=== PATIENT | female | born 1965 | race Caucasian/White ===

== ENCOUNTER 2017-02-03 02:31 | Emergency (ER) | payer OTHER ==
[~2017-02-03] VITALS: Ht 160 cm; Wt 52.8 kg
[~2017-02-03 02:31] MED LIST: AMOX1TAB64 PO; CEFD300C37 PO; GLIM1TAB2 PO; LISI-170 PO; PROM25TA10 PO; SIMV40TA3 PO; [UNRECOGNIZED DRUG - REMARK]
[2017-02-03 03:20] LABS: HEMATOCRIT 43.5 % (34.6-47.8); HEMOGLOBIN 14.8 g/dL (11.7-16.4); WHITE BLOOD COUNT 11.3 x10^3/uL (3.4-10)
[2017-02-03 03:23] LABS: PATH.CAST-FLAG NOT PRESENT; SPERM-FLAG NOT PRESENT; SRC-FLAG NOT PRESENT; XTAL-FLAG NOT PRESENT; YLC-FLAG NOT PRESENT
[2017-02-03] MEDS ORDERED: SODIUM CHLORIDE 0.9% 1,000ML IVBOLUS ONE (03:30)
[2017-02-03] MEDS ORDERED: ONDANSETRON 2MG/ML, 2ML IVPush ONE (03:30)
[2017-02-03] MEDS ORDERED: MORPHINE SULFATE 4 MG/ML, 1ML ONE (03:30)
[2017-02-03] MEDS ORDERED: MORPHINE SULFATE 4 MG/ML, 1ML IVPush PRN (03:30)
[2017-02-03] MEDS ORDERED: ONDANSETRON 2MG/ML, 2ML ONE (03:30)
[2017-02-03 03:32] LABS: ASPARTATE AMINO TRANSFERASE 18 U/L (15-37); BLOOD UREA NITROGEN 18 mg/dL (7-18)
[2017-02-03 03:38] LABS: IS PT STATUS REG ER OR PRE ER? YES
[2017-02-03] MEDS ORDERED: CEFTRIAXONE PMX 1GM/50ML 50 ML ONE (05:11)
[2017-02-03] MEDS ORDERED: CEFTRIAXONE PMX 1GM/50ML 50 ML IV ONE (05:30)
[2017-02-03 06:22] VITALS: BP 158/78
[2017-02-04] MEDS ORDERED: CIPR500T3 PO (11:54)
== END 2017-02-03 06:25 | disposition home or self-care (01) ==
LOC: ED 06:15
DX: N30.01 Acute cystitis with hematuria (principal); E11.9 Type 2 diabetes mellitus without complications; E78.5 Hyperlipidemia, unspecified; I10 Essential (primary) hypertension; N10 Acute pyelonephritis
CPT/HCPCS: 36415; 71010; 76700; 80053; 81001; 83690; 84484; 85025; 87040; 87077; 87086; 87186; 93005; 96361; 96365; 96375; 99285; J0696; J2405; J7030

== ENCOUNTER 2017-02-03 20:37 | Inpatient (IN) | payer OTHER ==
[~2017-02-03] VITALS: Ht 162.6 cm; Wt 55.4 kg
[2017-02-03] MEDS ORDERED: SODIUM CHLORIDE 0.9% 1,000ML IVBOLUS ONE (21:30)
[2017-02-03] MEDS ORDERED: CEFTRIAXONE PMX 1GM/50ML 50 ML IVPB ONE (21:30)
[2017-02-03 21:57] LABS: HEMATOCRIT 40.9 % (34.6-47.8); HEMOGLOBIN 13.9 g/dL (11.7-16.4); WHITE BLOOD COUNT 7.8 x10^3/uL (3.4-10)
[2017-02-03] MEDS ORDERED: CEFTRIAXONE PMX 1GM/50ML 50 ML ONE (22:05)
[2017-02-03 22:06] LABS: BLOOD UREA NITROGEN 12 mg/dL (7-18)
[2017-02-03] MEDS: SODIUM CHLORIDE 0.9% 1,000 ML IV ONE (22:31)
[2017-02-03] MEDS ORDERED: ONDANSETRON 2MG/ML, 2ML IVPush PRN (23:00)
[2017-02-04] MEDS ORDERED: PROMETHAZINE 25MG TABLET PO PRN (00:30)
[2017-02-04] MEDS ORDERED: TEMAZEPAM 15 MG CAPSULE PO PRN (00:30)
[2017-02-04] MEDS ORDERED: ACETAMINOPHEN 325 MG TABLET PO PRN (00:30)
[2017-02-04] MEDS ORDERED: DOCUSATE 100 MG CAPSULE PO PRN (00:30)
[2017-02-04] MEDS ORDERED: ENOXAPARIN 40 MG/0.4 ML SQ SCH (00:30)
[2017-02-04] MEDS ORDERED: ENALAPRILAT 1.25 MG/ML, 2ML IVPush PRN (00:30)
[2017-02-04] MEDS ORDERED: hydrALAzine 20 MG/ML, 1ML IVPush PRN (00:30)
[2017-02-04] MEDS ORDERED: SIMVASTATIN 40 MG TABLET PO SCH (00:30)
[2017-02-04] MEDS: INSULIN ASPART 100 UNITS/ML, PEN SQ-INSULIN SCH ×3 (01:56→11:52)
[2017-02-04 03:19] VITALS: BP 125/75
[2017-02-04 07:52] VITALS: BP 159/84
[2017-02-04] MEDS ORDERED: LISINOPRIL 20 MG TABLET PO SCH (09:00)
[2017-02-04] MEDS ORDERED: GLIMEPIRIDE 1 MG TABLET PO SCH (09:00)
[2017-02-04] MEDS ORDERED: CEFTRIAXONE PMX 1GM/50ML 50 ML IV SCH (09:00)
[2017-02-04] MEDS ORDERED: CIPR500T3 PO (11:54)
[2017-02-04 12:28] VITALS: BP 153/85
== END 2017-02-04 13:40 | disposition home or self-care (01) | DRG 689 ==
LOC: ED 21:50 → EDIP 22:31 → 4NOR 23:00
PROVIDERS: ADMIT Internal Medicine; ATTEND Internal Medicine
DX: N12 Tubulo-interstitial nephritis, not specified as acute or chronic (principal); E43 Unspecified severe protein-calorie malnutrition; R78.81 Bacteremia; B96.89 Other specified bacterial agents as the cause of diseases classified elsewhere; E11.65 Type 2 diabetes mellitus with hyperglycemia; E78.5 Hyperlipidemia, unspecified; I10 Essential (primary) hypertension; I16.0 Hypertensive urgency; Z83.3 Family history of diabetes mellitus; Z68.21 Body mass index [BMI] 21.0-21.9, adult
CPT/HCPCS: 36415; 80048; 82040; 82962; 85025; 87040; J0696; J1650; J1815; J7030

== ENCOUNTER 2017-07-01 10:41 | Emergency (ER) | payer OTHER ==
[~2017-07-01] VITALS: Ht 147.3 cm; Wt 56.2 kg
[~2017-07-01 10:41] MED LIST changes: +CIPR500T3 PO
[2017-07-01] MEDS ORDERED: INSU100V8 SQ (11:13)
[2017-07-01] MEDS ORDERED: SITA50TA PO (11:13)
[2017-07-01] MEDS ORDERED: EMPA25TA PO (11:13)
[2017-07-01] MEDS ORDERED: METF-163 PO (11:13)
[2017-07-01] MEDS ORDERED: ASPI-496 PO (11:13)
[2017-07-01] MEDS ORDERED: SODIUM CHLORIDE 0.9% 1,000ML IVBOLUS ONE (11:30)
[2017-07-01] MEDS ORDERED: SODIUM CHLORIDE FLUSH 10ML SYR IVF ONE (11:30)
[2017-07-01 11:44] LABS: BASOPHILS # (AUTO) 0.04 x10^3/uL (0-0.1); BASOPHILS % (AUTO) 0 % (0-1); EOSINOPHILS # (AUTO) 1.42 x10^3/uL (0-0.4); EOSINOPHILS % (AUTO) 15 % (1-7); LYMPHOCYTES # (AUTO) 1.37 x10^3/uL (1-3.4); LYMPHOCYTES % (AUTO) 14 % (22-44); MD NO; MEAN CORPUSCULAR HEMOGLOBIN 29.4 pg (27.0-34.8); MEAN CORPUSCULAR HGB CONC 33.8 g/dL (32.4-35.8); MEAN CORPUSCULAR VOLUME 86.8 fL (80-100); MEAN PLATELET VOLUME 8.3 fL (7.4-10.4); MONOCYTES # (AUTO) 0.46 x10^3/uL (0.2-0.8); MONOCYTES % (AUTO) 5 % (2-9); NEUTROPHILS # (AUTO) 6.21 x10^3/uL (1.8-6.8); NEUTROPHILS % (AUTO) 65 % (42-75); PLATELET COUNT 278 x10^3/uL (130-400); RED BLOOD COUNT 4.64 x10^6/uL (3.82-5.3); RED CELL DISTRIBUTION WIDTH 13.3 % (9.6-15.2)
[2017-07-01 11:48] LABS: MICROSCOPIC INDICATED
[2017-07-01 11:56] LABS: ALANINE AMINOTRANSFERASE 18 U/L (12-78); ALBUMIN 2.2 g/dL (3.4-5.0); ANION GAP 7 mmol/L (5-15); CALCIUM 8.2 mg/dL (8.5-10.1); CHLORIDE 106 mmol/L (98-107)
[2017-07-01 11:59] LABS: ALKALINE PHOSPHATASE 66 U/L (45-117); BILIRUBIN,TOTAL 0.3 mg/dL (0.2-1.0); TOTAL PROTEIN 6.4 g/dL (6.4-8.2)
[2017-07-01 12:12] LABS: CULTURE INDICATED? YES
[2017-07-01] MEDS ORDERED: IBUPROFEN 200 MG TABLET ONE (12:26)
[2017-07-01] MEDS ORDERED: CEFTRIAXONE PMX 1GM/50ML 50 ML ONE (12:26)
[2017-07-01] MEDS ORDERED: CEFTRIAXONE PMX 1GM/50ML 50 ML IVPB ONE (12:30)
[2017-07-01] MEDS ORDERED: IBUPROFEN 200 MG TABLET PO ONE (12:30)
[2017-07-01 13:51] VITALS: BP 164/81
== END 2017-07-01 13:54 | disposition home or self-care (01) ==
LOC: ED 12:00
DX: N30.01 Acute cystitis with hematuria (principal); E11.9 Type 2 diabetes mellitus without complications; E78.5 Hyperlipidemia, unspecified; I10 Essential (primary) hypertension; N20.0 Calculus of kidney; Z87.442 Personal history of urinary calculi
CPT/HCPCS: 36415; 80053; 81001; 83690; 85025; 87077; 87086; 87186; 96365; 99284; J0696; J7030

== ENCOUNTER 2018-01-15 02:35 | Inpatient (IN) | payer OTHER ==
[~2018-01-15] VITALS: Ht 149.9 cm; Wt 62.0 kg
[~2018-01-15 02:35] MED LIST changes: +ASPI-496 PO; +EMPA25TA PO; +INSU100V8 SQ; +METF-163 PO; +SITA50TA PO
[2018-01-15] MEDS ORDERED: MAALOX/HYOSCYAMINE/LIDOCAINE 45 ML BTL ONE (03:08)
[2018-01-15 03:30] LABS: BASOPHILS % (AUTO) 1 % (0-1); EOSINOPHILS # (AUTO) 0.04 x10^3/uL (0-0.4); EOSINOPHILS % (AUTO) 0 % (1-7); LYMPHOCYTES % (AUTO) 6 % (22-44); MD NO; MEAN CORPUSCULAR HEMOGLOBIN 29.9 pg (27.0-34.8); MEAN CORPUSCULAR HGB CONC 34.8 g/dL (32.4-35.8); MEAN CORPUSCULAR VOLUME 85.8 fL (80-100); MEAN PLATELET VOLUME 8.4 fL (7.4-10.4); MONOCYTES # (AUTO) 0.87 x10^3/uL (0.2-0.8); MONOCYTES % (AUTO) 6 % (2-9); NEUTROPHILS % (AUTO) 87 % (42-75); PLATELET COUNT 356 x10^3/uL (130-400); RED BLOOD COUNT 4.86 x10^6/uL (3.82-5.3); RED CELL DISTRIBUTION WIDTH 12.6 % (9.6-15.2)
[2018-01-15] MEDS ORDERED: SODIUM CHLORIDE FLUSH 10ML SYR IVF ONE (03:30)
[2018-01-15] MEDS ORDERED: SODIUM CHLORIDE 0.9% 1,000ML IVBOLUS ONE ×2 (03:30→17:00)
[2018-01-15] MEDS ORDERED: MAALOX/HYOSCYAMINE/LIDOCAINE 45 ML BTL PO ONE (03:30)
[2018-01-15 03:41] LABS: ALANINE AMINOTRANSFERASE 22 U/L (12-78); ALBUMIN 2.5 g/dL (3.4-5.0); ANION GAP 7 mmol/L (5-15); CALCIUM 8.9 mg/dL (8.5-10.1); CHLORIDE 99 mmol/L (98-107)
[2018-01-15 03:43] LABS: ALKALINE PHOSPHATASE 146 U/L (45-117); BILIRUBIN,TOTAL 0.4 mg/dL (0.2-1.0); TOTAL PROTEIN 7.4 g/dL (6.4-8.2)
[2018-01-15] MEDS ORDERED: OMNIPAQUE 350 MG/ML, 100ML BOTTLE ONE (05:18)
[2018-01-15] MEDS ORDERED: AMPICILLIN/SULBACTAM 3 GM in SODIUM CHLORIDE 0.9% 100 ML IV ONE (05:30)
[2018-01-15] MEDS ORDERED: METRONIDAZOLE PMX 500MG/100ML 100 ML IV ONE (05:30)
[2018-01-15] MEDS ORDERED: METRONIDAZOLE PMX 500MG/100ML 100 ML ONE (05:37)
[2018-01-15 07:41] VITALS: BP 148/80
[2018-01-15] MEDS ORDERED: morphine SULFATE 10 MG/ML, 1ML IVPush PRN (10:30)
[2018-01-15] MEDS: METRONIDAZOLE PMX 500MG/100ML 100 ML IV SCH ×2 (11:24→19:54)
[2018-01-15] MEDS: ENOXAPARIN 40 MG/0.4 ML SQ SCH (11:24)
[2018-01-15] MEDS: INSULIN LISPRO 100 UNITS/ML, PEN SQ-INSULIN SCH ×3 (11:39→20:26)
[2018-01-15 12:30] VITALS: BP 115/70
[2018-01-15] MEDS: CEFTRIAXONE 2 GM in SODIUM CHLORIDE 0.9% 50 ML IV SCH (12:49)
[2018-01-15 13:29] VITALS: BP 132/71
[2018-01-15 18:41] VITALS: BP 119/66
[2018-01-15] MEDS: SODIUM CHLORIDE 0.9% 1,000 ML IV SCH (19:54)
[2018-01-15] MEDS ORDERED: ONDANSETRON ODT 4 MG ONE (20:23)
[2018-01-15] MEDS: ONDANSETRON ODT 4 MG PO PRN (20:24)
[2018-01-15] MEDS: metFORMIN 500 MG TABLET PO SCH (20:24)
[2018-01-15] MEDS: FAMOTIDINE 20 MG/2 ML IVPush SCH (20:26)
[2018-01-15] MEDS ORDERED: ONDANSETRON 2MG/ML, 2ML IVPush PRN (20:30)
[2018-01-16 01:34] LABS: CULTURE INDICATED? YES; MICROSCOPIC INDICATED
[2018-01-16 01:36] VITALS: BP 123/64
[2018-01-16] MEDS: SODIUM CHLORIDE 0.9% 1,000 ML IV SCH ×3 (02:50→19:10)
[2018-01-16] MEDS: ACETAMINOPHEN 325 MG TABLET PO PRN ×3 (03:22→20:54)
[2018-01-16] MEDS: METRONIDAZOLE PMX 500MG/100ML 100 ML IV SCH ×3 (03:22→19:51)
[2018-01-16 05:51] LABS: BASOPHILS # (AUTO) 0.03 x10^3/uL (0-0.1); BASOPHILS % (AUTO) 0 % (0-1); EOSINOPHILS % (AUTO) 0 % (1-7); LYMPHOCYTES # (AUTO) 0.93 x10^3/uL (1-3.4); LYMPHOCYTES % (AUTO) 10 % (22-44); MD NO; MEAN CORPUSCULAR HGB CONC 34.3 g/dL (32.4-35.8); MEAN CORPUSCULAR VOLUME 87.3 fL (80-100); MEAN PLATELET VOLUME 8.5 fL (7.4-10.4); MONOCYTES # (AUTO) 0.71 x10^3/uL (0.2-0.8); MONOCYTES % (AUTO) 8 % (2-9); NEUTROPHILS # (AUTO) 7.67 x10^3/uL (1.8-6.8); NEUTROPHILS % (AUTO) 82 % (42-75); PLATELET COUNT 308 x10^3/uL (130-400); RED BLOOD COUNT 3.96 x10^6/uL (3.82-5.3); RED CELL DISTRIBUTION WIDTH 13.2 % (9.6-15.2)
[2018-01-16 06:01] LABS: ALANINE AMINOTRANSFERASE 15 U/L (12-78); ALBUMIN 1.9 g/dL (3.4-5.0); ANION GAP 8 mmol/L (5-15); CALCIUM 7.8 mg/dL (8.5-10.1); CHLORIDE 109 mmol/L (98-107); CREATININE 0.67 mg/dL (0.55-1.02)
[2018-01-16 06:04] LABS: ALKALINE PHOSPHATASE 101 U/L (45-117); BILIRUBIN,TOTAL 0.3 mg/dL (0.2-1.0); TOTAL PROTEIN 5.8 g/dL (6.4-8.2)
[2018-01-16] MEDS: INSULIN LISPRO 100 UNITS/ML, PEN SQ-INSULIN SCH ×4 (07:30→20:54)
[2018-01-16] MEDS: ASPIRIN 81 MG TABLET EC PO SCH (08:54)
[2018-01-16] MEDS: metFORMIN 500 MG TABLET PO SCH ×2 (08:54→20:54)
[2018-01-16] MEDS: FAMOTIDINE 20 MG/2 ML IVPush SCH (08:54)
[2018-01-16] MEDS: LINAGLIPTIN 5 MG TAB PO SCH (08:55)
[2018-01-16] MEDS: TEMPLATE NON-FORMULARY MED. (Empagliflozin (Jardiance) 1 TAB) HOMEMEDPO SCH (08:56)
[2018-01-16 09:08] VITALS: BP 154/75
[2018-01-16] MEDS: ENOXAPARIN 40 MG/0.4 ML SQ SCH (10:44)
[2018-01-16] MEDS ORDERED: POTASSIUM CHLORIDE 20 MEQ TAB.ER.PRT PO ONE (12:00)
[2018-01-16] MEDS: CEFTRIAXONE 2 GM in SODIUM CHLORIDE 0.9% 50 ML IV SCH (12:48)
[2018-01-16] MEDS: LISINOPRIL 20 MG TABLET PO SCH (12:52)
[2018-01-16] MEDS ORDERED: POTASSIUM PHOSPHATE 44 MEQ in SODIUM CHLORIDE 0.9% 500 ML IV ONE (13:00)
[2018-01-16 13:06] VITALS: BP 129/70
[2018-01-16 20:52] VITALS: BP 144/73
[2018-01-16] MEDS: FAMOTIDINE 20 MG TABLET PO SCH (20:54)
[2018-01-16] MEDS: SIMVASTATIN 40 MG TABLET PO SCH (20:54)
[2018-01-16] MEDS: ONDANSETRON ODT 4 MG PO PRN (21:01)
[2018-01-17] MEDS: SODIUM CHLORIDE 0.9% 1,000 ML IV SCH ×3 (01:50→14:35)
[2018-01-17 02:29] VITALS: BP 160/80
[2018-01-17] MEDS: METRONIDAZOLE PMX 500MG/100ML 100 ML IV SCH ×3 (03:30→20:02)
[2018-01-17] MEDS: ACETAMINOPHEN 325 MG TABLET PO PRN ×3 (03:34→20:02)
[2018-01-17 05:06] LABS: BASOPHILS # (AUTO) 0.02 x10^3/uL (0-0.1); BASOPHILS % (AUTO) 0 % (0-1); EOSINOPHILS % (AUTO) 0 % (1-7); LYMPHOCYTES # (AUTO) 1.37 x10^3/uL (1-3.4); LYMPHOCYTES % (AUTO) 14 % (22-44); MD NO; MEAN CORPUSCULAR HEMOGLOBIN 29.6 pg (27.0-34.8); MEAN CORPUSCULAR HGB CONC 33.9 g/dL (32.4-35.8); MEAN CORPUSCULAR VOLUME 87.4 fL (80-100); MEAN PLATELET VOLUME 8.3 fL (7.4-10.4); MONOCYTES # (AUTO) 0.72 x10^3/uL (0.2-0.8); MONOCYTES % (AUTO) 7 % (2-9); NEUTROPHILS # (AUTO) 7.94 x10^3/uL (1.8-6.8); NEUTROPHILS % (AUTO) 79 % (42-75); PLATELET COUNT 311 x10^3/uL (130-400); RED BLOOD COUNT 4.19 x10^6/uL (3.82-5.3); RED CELL DISTRIBUTION WIDTH 13.3 % (9.6-15.2)
[2018-01-17 05:18] LABS: ALBUMIN 1.9 g/dL (3.4-5.0); ANION GAP 9 mmol/L (5-15); CALCIUM 7.8 mg/dL (8.5-10.1); CHLORIDE 107 mmol/L (98-107); CREATININE 0.51 mg/dL (0.55-1.02)
[2018-01-17 05:25] LABS: HCT (SEDRATE) 34.6 % (34.6-47.8)
[2018-01-17 07:53] VITALS: BP 157/81
[2018-01-17] MEDS: INSULIN LISPRO 100 UNITS/ML, PEN SQ-INSULIN SCH ×4 (08:35→20:19)
[2018-01-17] MEDS: TEMPLATE NON-FORMULARY MED. (Empagliflozin (Jardiance) 1 TAB) HOMEMEDPO SCH (09:00)
[2018-01-17] MEDS: ENOXAPARIN 40 MG/0.4 ML SQ SCH (09:01)
[2018-01-17] MEDS: LISINOPRIL 20 MG TABLET PO SCH (09:02)
[2018-01-17] MEDS: ASPIRIN 81 MG TABLET EC PO SCH (09:02)
[2018-01-17] MEDS: FAMOTIDINE 20 MG TABLET PO SCH ×2 (09:02→20:02)
[2018-01-17] MEDS: metFORMIN 500 MG TABLET PO SCH ×2 (09:02→20:02)
[2018-01-17] MEDS: LINAGLIPTIN 5 MG TAB PO SCH (09:02)
[2018-01-17] MEDS ORDERED: MAGNESIUM SULFATE PMX 2GM/50ML 50 ML IV ONE (12:30)
[2018-01-17] MEDS ORDERED: POTASSIUM PHOSPHATE 44 MEQ in SODIUM CHLORIDE 0.9% 500 ML IV ONE (12:30)
[2018-01-17] MEDS: CEFTRIAXONE 2 GM in SODIUM CHLORIDE 0.9% 50 ML IV SCH (13:07)
[2018-01-17 13:49] VITALS: BP 153/85
[2018-01-17] MEDS: SIMVASTATIN 40 MG TABLET PO SCH (20:02)
[2018-01-17 20:55] VITALS: BP 166/89
[2018-01-18] MEDS: ACETAMINOPHEN 325 MG TABLET PO PRN ×4 (00:40→17:11)
[2018-01-18 01:30] VITALS: BP 178/90
[2018-01-18] MEDS: SODIUM CHLORIDE 0.9% 1,000 ML IV SCH ×3 (02:55→21:25)
[2018-01-18] MEDS: hydrALAzine 20 MG/ML, 1ML IVPush PRN (02:56)
[2018-01-18] MEDS: METRONIDAZOLE PMX 500MG/100ML 100 ML IV SCH ×3 (03:04→21:25)
[2018-01-18 03:19] VITALS: BP 129/68
[2018-01-18 06:09] LABS: ALBUMIN 1.8 g/dL (3.4-5.0); ANION GAP 11 mmol/L (5-15); CALCIUM 7.8 mg/dL (8.5-10.1); CHLORIDE 103 mmol/L (98-107)
[2018-01-18 06:10] LABS: CREATININE 0.45 mg/dL (0.55-1.02)
[2018-01-18 06:18] LABS: BASOPHILS # (AUTO) 0.03 x10^3/uL (0-0.1); BASOPHILS % (AUTO) 0 % (0-1); EOSINOPHILS # (AUTO) 0.01 x10^3/uL (0-0.4); EOSINOPHILS % (AUTO) 0 % (1-7); LYMPHOCYTES # (AUTO) 1.39 x10^3/uL (1-3.4); LYMPHOCYTES % (AUTO) 19 % (22-44); MD NO; MEAN CORPUSCULAR HEMOGLOBIN 29.6 pg (27.0-34.8); MEAN CORPUSCULAR HGB CONC 33.8 g/dL (32.4-35.8); MEAN CORPUSCULAR VOLUME 87.3 fL (80-100); MEAN PLATELET VOLUME 8.3 fL (7.4-10.4); MONOCYTES # (AUTO) 0.38 x10^3/uL (0.2-0.8); MONOCYTES % (AUTO) 5 % (2-9); NEUTROPHILS # (AUTO) 5.36 x10^3/uL (1.8-6.8); NEUTROPHILS % (AUTO) 75 % (42-75); PLATELET COUNT 353 x10^3/uL (130-400); RED BLOOD COUNT 4.28 x10^6/uL (3.82-5.3); RED CELL DISTRIBUTION WIDTH 13.3 % (9.6-15.2)
[2018-01-18] MEDS: ONDANSETRON ODT 4 MG PO PRN (07:14)
[2018-01-18 07:42] VITALS: BP 145/90
[2018-01-18] MEDS: FAMOTIDINE 20 MG TABLET PO SCH ×2 (08:35→21:25)
[2018-01-18] MEDS: ASPIRIN 81 MG TABLET EC PO SCH (08:35)
[2018-01-18] MEDS: metFORMIN 500 MG TABLET PO SCH ×2 (08:35→21:25)
[2018-01-18] MEDS: LISINOPRIL 20 MG TABLET PO SCH (08:35)
[2018-01-18] MEDS: INSULIN LISPRO 100 UNITS/ML, PEN SQ-INSULIN SCH ×4 (08:35→21:26)
[2018-01-18] MEDS: LINAGLIPTIN 5 MG TAB PO SCH (08:35)
[2018-01-18] MEDS: TEMPLATE NON-FORMULARY MED. (Empagliflozin (Jardiance) 1 TAB) HOMEMEDPO SCH (08:36)
[2018-01-18] MEDS ORDERED: POTASSIUM PHOSPHATE 44 MEQ in SODIUM CHLORIDE 0.9% 500 ML IV ONE ×2 (10:30→18:30)
[2018-01-18] MEDS ORDERED: POTASSIUM CHLORIDE 20 MEQ TAB.ER.PRT PO ONE ×2 (10:30→18:30)
[2018-01-18] MEDS: ENOXAPARIN 40 MG/0.4 ML SQ SCH (10:53)
[2018-01-18] MEDS: CEFTRIAXONE 2 GM in SODIUM CHLORIDE 0.9% 50 ML IV SCH (12:26)
[2018-01-18 15:20] VITALS: BP 154/81
[2018-01-18] MEDS ORDERED: MOVIPREP POWDER 1 PREP KIT PO ONE (19:00)
[2018-01-18 19:21] VITALS: BP 185/90
[2018-01-18 19:48] VITALS: BP 165/82
[2018-01-18] MEDS: SIMVASTATIN 40 MG TABLET PO SCH (21:25)
[2018-01-19 03:20] VITALS: BP 165/80
[2018-01-19] MEDS ORDERED: MOVIPREP POWDER 1 PREP KIT PO ONE (04:30)
[2018-01-19] MEDS: ACETAMINOPHEN 325 MG TABLET PO PRN (04:34)
[2018-01-19] MEDS: METRONIDAZOLE PMX 500MG/100ML 100 ML IV SCH (06:20)
[2018-01-19] MEDS: INSULIN LISPRO 100 UNITS/ML, PEN SQ-INSULIN SCH ×4 (07:00→20:25)
[2018-01-19 08:02] VITALS: BP 159/88
[2018-01-19] MEDS: metFORMIN 500 MG TABLET PO SCH ×2 (09:00→20:24)
[2018-01-19] MEDS: TEMPLATE NON-FORMULARY MED. (Empagliflozin (Jardiance) 1 TAB) HOMEMEDPO SCH (09:00)
[2018-01-19] MEDS: FAMOTIDINE 20 MG TABLET PO SCH ×2 (09:00→20:24)
[2018-01-19] MEDS: ENOXAPARIN 40 MG/0.4 ML SQ SCH (10:30)
[2018-01-19] MEDS: LISINOPRIL 20 MG TABLET PO SCH (11:13)
[2018-01-19] MEDS: SODIUM CHLORIDE 0.9% 1,000 ML IV SCH ×2 (13:10→20:25)
[2018-01-19] MEDS: CEFTRIAXONE 2 GM in SODIUM CHLORIDE 0.9% 50 ML IV SCH (13:57)
[2018-01-19] MEDS ORDERED: PROPOFOL 10 MG/ML, 20ML ONE (14:50)
[2018-01-19] MEDS ORDERED: FENTANYL PF 100 MCG/2ML IV PRN (16:00)
[2018-01-19] MEDS ORDERED: ONDANSETRON 2MG/ML, 2ML IV PRN (16:00)
[2018-01-19] MEDS ORDERED: ACETAMINOPHEN 325 MG TABLET PO PRN (16:00)
[2018-01-19] MEDS ORDERED: ONDANSETRON ODT 8 MG PO PRN (16:00)
[2018-01-19] MEDS ORDERED: PROMETHAZINE 25 MG/ML, 1ML IV PRN (16:00)
[2018-01-19] MEDS ORDERED: OXYcodone 5 MG/5 ML ORAL.SOL UDC PO PRN (16:00)
[2018-01-19 16:30] VITALS: BP 178/110
[2018-01-19] MEDS: ONDANSETRON ODT 4 MG PO PRN (16:42)
[2018-01-19] MEDS: hydrALAzine 20 MG/ML, 1ML IVPush PRN (16:51)
[2018-01-19] MEDS: LINAGLIPTIN 5 MG TAB PO SCH (16:52)
[2018-01-19] MEDS: metroNIDAZOLE 500 MG TABLET PO SCH (16:52)
[2018-01-19] MEDS: ASPIRIN 81 MG TABLET EC PO SCH (16:52)
[2018-01-19] MEDS: SIMVASTATIN 40 MG TABLET PO SCH (20:24)
[2018-01-20 02:23] VITALS: BP 147/80
[2018-01-20] MEDS: metroNIDAZOLE 500 MG TABLET PO SCH ×3 (02:25→17:11)
[2018-01-20] MEDS: SODIUM CHLORIDE 0.9% 1,000 ML IV SCH ×3 (02:26→17:11)
[2018-01-20] MEDS: INSULIN LISPRO 100 UNITS/ML, PEN SQ-INSULIN SCH ×4 (08:30→21:00)
[2018-01-20 09:04] VITALS: BP 152/86
[2018-01-20] MEDS: TEMPLATE NON-FORMULARY MED. (Empagliflozin (Jardiance) 1 TAB) HOMEMEDPO SCH (10:26)
[2018-01-20] MEDS: metFORMIN 500 MG TABLET PO SCH ×2 (10:33→22:04)
[2018-01-20] MEDS: FAMOTIDINE 20 MG TABLET PO SCH ×2 (10:33→22:03)
[2018-01-20] MEDS: LINAGLIPTIN 5 MG TAB PO SCH (10:33)
[2018-01-20] MEDS: ASPIRIN 81 MG TABLET EC PO SCH (10:33)
[2018-01-20] MEDS: LISINOPRIL 20 MG TABLET PO SCH (10:33)
[2018-01-20] MEDS: ENOXAPARIN 40 MG/0.4 ML SQ SCH (10:34)
[2018-01-20 12:12] LABS: ALANINE AMINOTRANSFERASE 62 U/L (12-78); ALBUMIN 1.8 g/dL (3.4-5.0); ANION GAP 10 mmol/L (5-15); CALCIUM 7.9 mg/dL (8.5-10.1); CHLORIDE 104 mmol/L (98-107); CREATININE 0.48 mg/dL (0.55-1.02)
[2018-01-20 12:14] LABS: ALKALINE PHOSPHATASE 86 U/L (45-117); BILIRUBIN,TOTAL 0.3 mg/dL (0.2-1.0); TOTAL PROTEIN 5.5 g/dL (6.4-8.2)
[2018-01-20] MEDS: CEFTRIAXONE 2 GM in SODIUM CHLORIDE 0.9% 50 ML IV SCH (13:13)
[2018-01-20 14:14] VITALS: BP 141/71
[2018-01-20 20:00] VITALS: BP 147/74
[2018-01-20] MEDS: SIMVASTATIN 40 MG TABLET PO SCH (22:04)
[2018-01-21] MEDS: SODIUM CHLORIDE 0.9% 1,000 ML IV SCH ×4 (00:08→23:37)
[2018-01-21] MEDS: metroNIDAZOLE 500 MG TABLET PO SCH ×5 (01:42→20:44)
[2018-01-21 02:00] VITALS: BP 141/72
[2018-01-21 06:33] LABS: CREATININE 0.37 mg/dL (0.55-1.02)
[2018-01-21] MEDS: INSULIN LISPRO 100 UNITS/ML, PEN SQ-INSULIN SCH ×4 (07:00→20:45)
[2018-01-21 07:54] VITALS: BP 163/81
[2018-01-21] MEDS: TEMPLATE NON-FORMULARY MED. (Empagliflozin (Jardiance) 1 TAB) HOMEMEDPO SCH (09:00)
[2018-01-21] MEDS: ASPIRIN 81 MG TABLET EC PO SCH (09:22)
[2018-01-21] MEDS: metFORMIN 500 MG TABLET PO SCH ×2 (09:22→20:44)
[2018-01-21] MEDS: FAMOTIDINE 20 MG TABLET PO SCH ×2 (09:23→20:44)
[2018-01-21] MEDS: LINAGLIPTIN 5 MG TAB PO SCH (09:23)
[2018-01-21] MEDS: LISINOPRIL 20 MG TABLET PO SCH (09:23)
[2018-01-21] MEDS: ENOXAPARIN 40 MG/0.4 ML SQ SCH (11:00)
[2018-01-21] MEDS: FLUCONAZOLE 200 MG/100 ML 100 ML IV SCH (11:01)
[2018-01-21] MEDS: CEFDINIR 300 MG CAPSULE PO SCH ×2 (11:01→20:44)
[2018-01-21 11:14] LABS: HEMOGLOBIN A1C 14.7 % (4.2-6.3)
[2018-01-21 13:19] VITALS: BP 179/102
[2018-01-21] MEDS ORDERED: ENALAPRILAT 1.25 MG/ML, 2ML IV ONE (14:00)
[2018-01-21 15:08] VITALS: BP 156/77
[2018-01-21] MEDS ORDERED: CEFD300C37 PO (15:20)
[2018-01-21] MEDS ORDERED: METR500T PO (15:22)
[2018-01-21] MEDS ORDERED: METOPROLOL TARTRATE 100 MG TABLET PO ONE (15:30)
[2018-01-21] MEDS ORDERED: ENALAPRILAT 1.25 MG/ML, 2ML IV PRN (15:30)
[2018-01-21] MEDS ORDERED: METOPROLOL TARTRATE 50 MG TABLET PO SCH (18:00)
[2018-01-21 20:21] VITALS: BP 149/76
[2018-01-21] MEDS: SIMVASTATIN 40 MG TABLET PO SCH (20:44)
[2018-01-21] MEDS: METOPROLOL TARTRATE 50 MG TABLET PO SCH (20:45)
[2018-01-22 02:50] VITALS: BP 162/84
[2018-01-22] MEDS: INSULIN LISPRO 100 UNITS/ML, PEN SQ-INSULIN SCH ×2 (07:00→11:00)
[2018-01-22 07:32] VITALS: BP 165/83
[2018-01-22] MEDS: TEMPLATE NON-FORMULARY MED. (Empagliflozin (Jardiance) 1 TAB) HOMEMEDPO SCH (08:35)
[2018-01-22] MEDS: SODIUM CHLORIDE 0.9% 1,000 ML IV SCH (08:35)
[2018-01-22] MEDS: METOPROLOL TARTRATE 50 MG TABLET PO SCH (08:37)
[2018-01-22] MEDS: CEFDINIR 300 MG CAPSULE PO SCH (08:37)
[2018-01-22] MEDS: FAMOTIDINE 20 MG TABLET PO SCH (08:37)
[2018-01-22] MEDS: ASPIRIN 81 MG TABLET EC PO SCH (08:38)
[2018-01-22] MEDS: LINAGLIPTIN 5 MG TAB PO SCH (08:39)
[2018-01-22] MEDS: metFORMIN 500 MG TABLET PO SCH (08:39)
[2018-01-22] MEDS: metroNIDAZOLE 500 MG TABLET PO SCH (08:39)
[2018-01-22] MEDS ORDERED: METO-99 PO (08:49)
[2018-01-22] MEDS ORDERED: FLUC200T4 PO (08:54)
[2018-01-22] MEDS ORDERED: LISINOPRIL 20 MG TABLET PO SCH (09:00)
[2018-01-22] MEDS ORDERED: METOPROLOL TARTRATE 100 MG TABLET PO SCH (09:00)
[2018-01-22] MEDS ORDERED: METOPROLOL TARTRATE 50 MG TABLET PO ONE (09:30)
[2018-01-22] MEDS: ENOXAPARIN 40 MG/0.4 ML SQ SCH (10:30)
[2018-01-22 11:03] VITALS: BP 168/90
[2018-01-22] MEDS: FLUCONAZOLE 200 MG/100 ML 100 ML IV SCH (11:52)
[2018-01-22 13:11] VITALS: BP 170/90
[2018-01-22] MEDS ORDERED: LISI-170 PO (13:46)
== END 2018-01-22 14:16 | disposition home or self-care (01) | DRG 871 ==
LOC: ED 03:04 → EDIP 06:18 → 4EST 07:37
PROVIDERS: ADMIT Internal Medicine; ATTEND Hospitalist
PROC: 0DJD8ZZ Inspection of Lower Intestinal Tract, Via Natural or Artificial Opening Endoscopic (ICD-10-PCS; principal; 2018-01-20)
PROC: 0DB98ZX Excision of Duodenum, Via Natural or Artificial Opening Endoscopic, Diagnostic (ICD-10-PCS; 2018-01-20)
PROC: 0DB68ZX Excision of Stomach, Via Natural or Artificial Opening Endoscopic, Diagnostic (ICD-10-PCS; 2018-01-20)
DX: A41.9 Sepsis, unspecified organism (principal); E43 Unspecified severe protein-calorie malnutrition; E87.1 Hypo-osmolality and hyponatremia; B48.8 Other specified mycoses; K52.9 Noninfective gastroenteritis and colitis, unspecified; Z87.442 Personal history of urinary calculi; R09.02 Hypoxemia; B88.8 Other specified infestations; D25.9 Leiomyoma of uterus, unspecified; E11.65 Type 2 diabetes mellitus with hyperglycemia; E78.5 Hyperlipidemia, unspecified; E86.9 Volume depletion, unspecified; I10 Essential (primary) hypertension; I25.10 Atherosclerotic heart disease of native coronary artery without angina pectoris; Z68.27 Body mass index [BMI] 27.0-27.9, adult; K63.89 Other specified diseases of intestine; J38.4 Edema of larynx
CPT/HCPCS: 36415; 84145; 87106; 99285; S0028; 74177; 80048; 80053; 81001; 82040; 82565; 82947; 82962; 83036; 83605; 83690; 83735; 84100; 85025; 85651; 86140; 87040; 87086; 88305; 93005; 96374; 96375; G0378; J0295; J0696; J1650; J2704; Q0162; Q9967; J0360; J1450; J1815; J3475; J7030; J7040

== ENCOUNTER 2019-06-23 12:30 | Emergency (ER) | payer OTHER ==
[~2019-06-23] VITALS: Ht 147.3 cm; Wt 50.0 kg
[~2019-06-23 12:30] MED LIST changes: +FLUC200T4 PO; -GLIM1TAB2 PO; +GLIM1TAB3 PO; +METO-99 PO; +METR500T PO
--- NOTE | 2019-06-23 12:56 | NUR ---
ERP WAS IN TO SEE PT.
[2019-06-23 13:38] LABS: BASOPHILS # (AUTO) 0.04 x10^3/uL (0-0.1); BASOPHILS % (AUTO) 1 % (0-1); EOSINOPHILS # (AUTO) 0.05 x10^3/uL (0-0.4); EOSINOPHILS % (AUTO) 1 % (1-7); LYMPHOCYTES # (AUTO) 0.98 x10^3/uL (1-3.4); LYMPHOCYTES % (AUTO) 12 % (22-44); MD NO; MEAN CORPUSCULAR HEMOGLOBIN 26.6 pg (27.0-34.8); MEAN CORPUSCULAR VOLUME 80.7 fL (80-100); MEAN PLATELET VOLUME 9.4 fL (7.4-10.4); MONOCYTES # (AUTO) 0.35 x10^3/uL (0.2-0.8); MONOCYTES % (AUTO) 4 % (2-9); NEUTROPHILS # (AUTO) 7.03 x10^3/uL (1.8-6.8); NEUTROPHILS % (AUTO) 83 % (42-75); PLATELET COUNT 335 x10^3/uL (130-400); RED BLOOD COUNT 4.28 x10^6/uL (3.82-5.3); RED CELL DISTRIBUTION WIDTH 15.3 % (9.6-15.2)
--- NOTE | 2019-06-23 13:40 | NUR ---
PT AMBULATED TO BR. INSTRUCTED ON CLEAN CATCH URINE SAMPLE. FAMILY AT BS.
--- NOTE | 2019-06-23 13:48 | NUR ---
US AT BS.
[2019-06-23 13:49] LABS: ANION GAP 7 mmol/L (5-15); CALCIUM 8.6 mg/dL (8.5-10.1); CHLORIDE 97 mmol/L (98-107)
[2019-06-23 13:52] LABS: ALANINE AMINOTRANSFERASE 26 U/L (12-78); ALKALINE PHOSPHATASE 170 U/L (45-117); BILIRUBIN,TOTAL 0.3 mg/dL (0.2-1.0); CREATININE 1.74 mg/dL (0.55-1.02); TOTAL PROTEIN 6.8 g/dL (6.4-8.2)
[2019-06-23 14:04] LABS: MICROSCOPIC INDICATED
[2019-06-23 14:13] LABS: CULTURE INDICATED? NO
--- NOTE | 2019-06-23 14:13 | NUR ---
BLOOD GLUCOSE WAS 565. ERP NOTIFIED. PT STATES SHE USES LANTUS INSULIN BUT HASN'T TAKEN IT SINCE MONDAY NIGHT. STATES SHE DIDN'T EAT ANYTHING TODAY. REPORTS A LITTLE NAUSEA & ABDOMINAL PAIN CURRENTLY, ALSO C/O HEADACHE AND BILAT EAR PAIN. Addendum: 06/23/19 at 1414 by HBENSON PT REPORTS SHE DOESN'T CHECK HER BLOOD SUGAR AT HOME.
[2019-06-23] MEDS ORDERED: INSU100V8 SQ (14:15)
[2019-06-23] MEDS ORDERED: SODIUM CHLORIDE 0.9% 1,000ML IVBOLUS ONE (14:30)
[2019-06-23] MEDS ORDERED: INSULIN REGULAR 100 UNITS/ML, 3ML VIAL SQ-INSULIN ONE (14:30)
[2019-06-23] MEDS ORDERED: INSULIN SINGLE DOSE, ER ONE ×2 (14:42→16:38)
--- NOTE | 2019-06-23 14:57 | NUR ---
INSULIN GIVEN PER ORDERS AND IV BOLUS INFUSING. ERP AT FOR RECHECK.
[2019-06-23] MEDS ORDERED: ENALAPRILAT 1.25 MG/ML, 2ML IV ONE (15:00)
[2019-06-23] MEDS ORDERED: ENALAPRILAT 1.25 MG/ML, 1ML ONE (15:34)
[2019-06-23 16:11] VITALS: BP 164/84
[2019-06-23] MEDS ORDERED: INSULIN REGULAR 100 UNITS/ML, 3ML VIAL SQ-INSULIN SCH (16:30)
--- NOTE | 2019-06-23 17:08 | NUR ---
BREAK RN: DR PARTIDA OKAYED FOR DISCHARGE. ALL QUESTIONS ANSWERED. PT REPORTS SHE WILL FOLLOW UP WITH HER PRIMARY DOCTOR AND FOLLOW UP WITH HER REFERRAL TO SEE A KIDNEY SPECIALIST. VS STABLE. PT IS A&O X4. PT READY FOR DISCHARGE. PT HAS A RIDE HOME WITH DAUGHTER.
== END 2019-06-23 17:15 | disposition home or self-care (01) ==
LOC: EDBD → ED 13:07 → MERGE 13:07 → ED 17:15
DX: R10.13 Epigastric pain (principal); R10.12 Left upper quadrant pain; I10 Essential (primary) hypertension; R11.2 Nausea with vomiting, unspecified; E11.9 Type 2 diabetes mellitus without complications; E78.5 Hyperlipidemia, unspecified
CPT/HCPCS: 36415; 76700; 80053; 81001; 83690; 85025; 96361; 96372; 96374; 99284; J7030; J1815